=== PATIENT | female | born 1965 | race Hispanic/Latino ===

== ENCOUNTER 2017-02-19 07:11 | Day surgery (SDC) | payer MEDICARE ==
[2017-02-19] MEDS ORDERED: NACL 0.9% 500 ML 500 ML ONE (07:24)
[2017-02-19] MEDS ORDERED: ECOTRIN PO ONE ×2 (07:24→07:29)
[2017-02-19 07:54] LABS: Basophils % (Auto) 0.4 % (0.0-1.8); Eosinophils % (Auto) 1.6 % (0.0-4.3); Hematocrit 45.5 % (30.3-42.9); Hemoglobin 15.2 gm/dl (10.1-14.3); Mean Corpuscular HGB Conc 34 % (30-34); Mean Corpuscular Hemoglobin 31 pg (28-32); Mean Corpuscular Volume 92 fl (79-97); Platelet Count 234 K/mm3 (140-440); Red Blood Count 4.95 M/mm3 (3.65-5.03); Red Cell Distribution Width 14.4 % (13.2-15.2); White Blood Count 10.3 K/mm3 (4.5-11.0)
[2017-02-19] MEDS ORDERED: NACL 0.9% 500 ML 500 ML IV SCH (08:00)
[2017-02-19 08:04] LABS: INR 0.91 (0.87-1.13)
[2017-02-19 08:07] LABS: Anion Gap 14 mmol/L; Blood Urea Nitrogen 28 mg/dL (7-17); Carbon Dioxide 27 mmol/L (22-30); Chloride 102.2 mmol/L (98-107); Glucose 136 mg/dL (65-100); Potassium 4.4 mmol/L (3.6-5.0); Sodium 139 mmol/L (137-145)
[2017-02-19] MEDS ORDERED: NACL 0.9% 0 ML ONE (08:14)
[2017-02-19] MEDS ORDERED: ANGIOMAX IV ONE (08:14)
[2017-02-19] MEDS ORDERED: WATER FOR INJ (PF) 0 ML ONE (08:14)
[2017-02-19] MEDS: XYLOCAINE 2% INFILTRATI ONE ×2 (08:50→09:05)
[2017-02-19] MEDS: VERSED ONE ×3 (08:51→09:08)
[2017-02-19] MEDS: SUBLIMAZE ONE ×3 (08:51→09:08)
[2017-02-19] MEDS: HEPARIN 10,000 UNITS/10 ML ONE ×2 (08:51→09:06)
[2017-02-19] MEDS: CALAN ONE ×2 (08:52→09:06)
[2017-02-19] MEDS: NITROGLYCERIN SYRINGE 3 ML ONE ×2 (08:53→09:06)
[2017-02-19] MEDS: HEPARIN/NS 5000 UNIT/500ML(CATH LAB) 1,000 ML IR ONE ×2 (08:53→09:06)
[2017-02-19] MEDS ORDERED: NACL 0.9% 1000 ML 1,000 ML ONE (09:00)
--- NOTE | 2017-02-19 09:55 | Cardiac Catherization Report ---
REFERRING PHYSICIAN: Dr. Kane Guzman. INDICATION FOR PROCEDURE: The patient is a pleasant 51-year-old female with an indeterminate exercise stress test and recurrent chest pain with typical ____ features referred here for cardiac cath for definitive assessment and coronary assessment. Risks, benefits, and alternatives were discussed at length prior to obtaining informed consent. PROCEDURE IN DETAIL: The patient was brought to slab tripper in a postabsorptive state. Prepped and draped in sterile fashion. Juan Luis's test in right hand was normal. A 2 mL of 2% lidocaine used to anesthetize the right wrist. A standard 5 [place] hydrophilic sheath used to cannulate the right radial artery via modified Seldinger technique. All exchanges performed to exchange a J-tip guidewire. JL3.5 catheter used to engage left main. No dampening or ventricularization. Cineangiography performed in all projections. JR4 catheter used to cross the aortic valve under fluoroscopic guidance. Left ventriculography performed in 30 HAIDER and 30 MICHAEL projections via hand injections, catheter flushed. Manual pullback performed with continuous pressure monitoring. Catheter used to engage the right coronary. No dampening or ventricularization. Cineangiography performed in all projections. Next, catheter removed from the body over a wire. Sheath removed. Manual pressure used to achieve hemostasis. No complications. DATA: Aortic pressure is 104/80, LV pressure is 104, and LVEDP of 10 mmHg. Left ventriculography revealed normal systolic performance with estimated ejection fraction of 55-60%. No evidence of aortic stenosis. CORONARY ANATOMY: This is a right dominant system. Right coronary is a moderate to large-sized vessel, courses AV groove, distally bifurcates in the posterior descending and posterolateral branch. No discrete stenosis identified. Left main has a moderate-sized vessel. No significant disease. Bifurcates in left anterior descending and left circumflex. Left circumflex is a moderate-sized vessel, courses AV groove diminutive to AV groove circumflex. No significant disease. LAD is a moderate sized vessel, courses anterior interventricular groove, and wraps around the apex. No significant disease in the LAD or diagonal system. CONCLUSIONS: 1. No angiographic evidence of significant epicardial coronary disease in this right dominant system. 2. Normal left ventricular systolic performance with estimated ejection fraction of 55-60%. 3. No evidence of aortic stenosis. 4. Normal LVEDP. Recommend continue risk factor modification and primary prevention measures. Follow up with Dr. Guzman. Results of the procedure were explained at length to the patient and family. All questions and concerns were addressed. JOB# [id number] AMITA/NTS
--- NOTE | 2017-02-19 11:14 | Short Stay Summary ---
Short Stay Documentation Date of service: 02/19/17 - History H&P: obtained from office - Allergies and Medications Current Medications: Allergies nitrofurantoin [From Macrobid] Adverse Reaction (Verified 02/19/17 07:28) ELEVATED BP, IRREGULAR HEARTBEAT nitrofurantoin macrocrystalline [From Macrobid] Adverse Reaction (Verified 02/19 07:28) ELEVATED BP, IRREGULAR HEARTBEAT Sulfa (Sulfonamide Antibiotics) Adverse Reaction (Verified 02/19/17 07:28) Hives DIFFICULTY IN BREATHING sulfamethoxazole [From Bactrim] Adverse Reaction (Verified 02/19/17 07:28) ELEVATED BP. IRREGULAR HEARTBEAT. trimethoprim [From Bactrim] Adverse Reaction (Verified 02/19/17 07:28) ELEVATED BP. IRREGULAR HEARTBEAT. Home Medications Medication Instructions Recorded Confirmed Last Taken Type ALPRAZolam [Alprazolam] 1 mg PO DAILY PRN 02/19/17 02/19/17 02/18/17 History Aspirin EC [Aspirin Enteric Coated 81 mg PO DAILY 02/19/17 02/19/17 02/18/17 History TAB] Carvedilol Nicu (1.67 mg/ml) 25 mg PO BID 02/19/17 02/19/17 02/18/17 History [Coreg NICU dilution] Duloxetine HCl [DULoxetine] 30 mg PO DAILY 02/19/17 02/19/17 02/18/17 History ISOSORBIDE MONOnitrate [Imdur ER] 30 mg PO DAILY 02/19/17 02/19/17 02/18/17 History Losartan Potassium [Losartan 100 mg PO DAILY 02/19/17 02/19/17 02/18/17 History Potassium] Nitroglycerin [Nitrostat] 0.4 mg SUBLINGUAL DAILY PRN 02/19/17 02/19/17 History Active Medications Sodium Chloride (Nacl 0.9% 500 Ml) 500 mls @ 50 mls/hr IV DIRECT MADIHA Stop: 02/19/17 17:59 Last Admin: 02/19/17 08:22 Dose: 50 mls/hr - Brief post op/procedure progress note Date of procedure: 02/19/17 Pre-op diagnosis: chest pain, abnormal stress test Procedure: left heart cath - Hospital course Hospital course: Please see dictated cath report. - Disposition Condition at discharge: Stable Disposition: DISCHARGED TO HOME OR SELFCARE - Discharge Diagnoses (1) Chest pain Status: Acute Qualifiers: Chest pain type: C (2) Abnormal stress test Status: Acute (3) Hypertension Status: Chronic Qualifiers: Hypertension type: H Short Stay Discharge Plan Activity: advance as tolerated Weight Bearing Status: Weight Bear as Tolerated Wound: keep clean and dry Follow up with: HANS BARTHOLOMEW MD [Staff Physician] - 7 Days Forms: CardCath PCI D/C Instructions
[2017-02-19 12:43] VITALS: BP 85/52
== END 2017-02-19 12:10 | disposition home or self-care (01) ==
LOC: OPU 07:11
PROVIDERS: ATTEND Internal Medicine
DX: R94.39 Abnormal result of other cardiovascular function study (principal); R07.9 Chest pain, unspecified; I10 Essential (primary) hypertension; F17.210 Nicotine dependence, cigarettes, uncomplicated; Z90.710 Acquired absence of both cervix and uterus; Z90.49 Acquired absence of other specified parts of digestive tract; Z79.899 Other long term (current) drug therapy; Z83.3 Family history of diabetes mellitus; Z82.49 Family history of ischemic heart disease and other diseases of the circulatory system
CPT/HCPCS: 36415; 80048; 85025; 85610; 85730; 93005; 93010; 93458; C1894; J1644; J2250; J3010; J7030; J7040; J0583; Q9967